=== PATIENT | female | born 1950 | race Caucasian/White ===

== ENCOUNTER 2018-06-20 15:10 | Outpatient (CLI) | payer SELFPAY ==
[2018-06-20] MEDS ORDERED: Sodium Chloride 0.9% 15 ML NEB ONE (16:00)
== END 2018-06-20 15:11 | disposition home or self-care (01) ==
LOC: WCC 15:10
PROVIDERS: ATTEND Family Medicine
DX: T81.89XD Other complications of procedures, not elsewhere classified, subsequent encounter (principal)
CPT/HCPCS: A4218